=== PATIENT | female | born 1980 | race Asian ===

== ENCOUNTER 2018-01-17 05:13 | Inpatient (IN) | payer OTHER ==
[2018-01-17] VITALS (11 sets, daily range): BP systolic 102–118; BP diastolic 49–73
[~2018-01-17] VITALS: Ht 172.7 cm; Wt 93.4 kg
[~2018-01-17 05:13] MED LIST: CELEXA20 MG ORAL; NORCO 5-325 TA1 EAC1 ORAL; WELLBUTRIN XL150 MG ORAL
[2018-01-17] MEDS ORDERED: PERCOCET 5-3251 EACH ORAL (06:19)
[2018-01-17] MEDS ORDERED: XANAX0.25 MG ORAL (06:20)
[2018-01-17] MEDS ORDERED: ceFAZolin sod 2 GM in D5W 110 ML IVPB ONE (07:00)
[2018-01-17] MEDS ORDERED: Bupivacaine 0.5% Inj 30 ml vial INJ ONE (07:16)
[2018-01-17] MEDS ORDERED: Thrombin 5000 units TOPIC ONE ×2 (07:17→07:50)
[2018-01-17] MEDS ORDERED: Vancomycin 1gm inj IVPB ONE (07:17)
[2018-01-17] MEDS ORDERED: Bacitracin 50000 Units Vial ONE ×2 (07:17→12:40)
--- NOTE | 2018-01-17 07:20 | Pre-Procedure Note/Attestation ---
Pre-Procedure Note/Attestation Complete Prior to Procedure Procedure Narrative: transforaminal lumbar interforaminal fusion and decompression and instrumentation at L5S1 Indications for Procedure Pre-Operative Diagnosis: lumbar radiculopathy right sided Attestation I attest that I discussed the nature of the procedure; its benefits; risks and complications; and alternatives (and the risks and benefits of such alternatives ), prior to the procedure, with the patient (or the patient's legal packaging sales representative). I attest that, if there was a reasonable possibility of needing a blood transfusion, the patient (or the patient's legal packaging sales representative) was given the [place] [facility] [employer] [facility] standardized written summary, pursuant to the Jayesh Edson Blood Safety Act ([place] Health and Safety Code # 1645, as amended). I attest that I re-evaluated the patient just prior to the surgery and that there has been no change in the patient's H&P, except as documented below: AILYN ARAUJO Jan 17, 2018 07:20
[2018-01-17] MEDS ORDERED: Naloxone 0.4mg/ml Inj IVP PRN ×2 (07:30→12:15)
--- NOTE | 2018-01-17 07:43 | Anethesia Preoperative Eval ---
Anesthesia Pre-op PMH/ROS General Date of Evaluation: Jan 17, 2018 Time of Evaluation: 07:42 Anesthesiologist: José Miguel ASA Score: ASA 2 Mallampati Score Class I : Soft palate, uvula, fauces, pillars visible Class II: Soft palate, uvula, fauces visible Class III: Soft palate, base of uvula visible Class IV: Only hard plate visible Mallampati Classification: Class II Surgeon: Steve Diagnosis: Lumbar radiculopathy Surgical Procedure: L5-S1 discectomy with fusion Anesthesia History: PONV Family History: no anesthesia problems Allergies: Coded Allergies: LATEX (Verified Allergy, Intermediate, hives, 01/16/18) ADHESIVE TAPE (Verified Allergy, Mild, rash, 01/16/18) Medications: see eMAR Past Medical History Cardiovascular: Denies: HTN, CAD, NC, valve dz, arrhythmia, other Pulmonary: Denies: asthma, COPD, KAR, other Gastrointestinal/Genitourinary: Reports: GERD - mild; Denies: CRI, ESRD, other Neurologic/Psychiatric: Reports: depression/anxiety, other - chronic pain Endocrine: Denies: DM, hypothyroidism, steroids, other HEENT: Denies: cataract (L), cataract (R), glaucoma, COUNCIL (L), COUNCIL (R), other Hematology/Immune: Denies: anemia, DVT, bleeding disorder, other Musculoskeletal/Integumentary: Denies: OA, RA, DJD, DDD, edema, other Other: other - overweight PMH Narrative: as above PSxH Narrative: R shoulder scope. ACDF Anesthesia Pre-op Phys. Exam Physician Exam Last Vital Signs Date Time Temp Pulse Resp B/P (MAP) Pulse Ox O2 Delivery O2 Flow Rate FiO2 01/17/18 06:12 97.8 81 20 113/73 98 Room Air 97.8 Constitutional: NAD, other Neurologic: CN 2-12 intact Cardiovascular: RRR, no M/R/G Respiratory: CTA Gastrointestinal: S/NT/ND Airway Exam Mallampati Score: Class II MO: full Neck: stiff post surgical ROM: limited Teeth: intact Dentures: no upper, no lower Anesthesia Pre-op A/P Labs see chart Urine Test Test 01/17/18 05:40 Urine HCG, Qualitative Negative (NEGATIVE) Studies Pre-op Studies: EKG - NSR Risk Assessment & Plan Assessment: ASA 2 Plan: GA with ETT prone position PONV prevention neuromonitoring Status Change Before Surgery: No Pre-Antibiotics Drug: Ancef 2gr. Given Within 1 Hr of Incision: Yes Time Given: 07:58 KETURAH WERNER M.D. Jan 17, 2018 07:43
[2018-01-17] MEDS ORDERED: Bacitracin 50000 Units Vial IRRIG ONE (07:50)
[2018-01-17] MEDS ORDERED: Zemuron 50mg/5ml Inj IV ONE (08:00)
[2018-01-17] MEDS ORDERED: Succinylcholine 20mg/ml 10ml vial ONE (08:00)
[2018-01-17] MEDS ORDERED: fentaNYL 100 mcg/2 mL IV ONE (08:00)
[2018-01-17] MEDS ORDERED: Glycopyrrolate 0.2mg/ml 1ml Vial ONE (08:00)
[2018-01-17] MEDS ORDERED: Neostigmine 1mg/ml 10ml Inj ONE (08:00)
[2018-01-17] MEDS ORDERED: LR 1000ml ONE (08:00)
[2018-01-17] MEDS ORDERED: Midazolam 2mg/2ml Inj ONE (08:00)
[2018-01-17] MEDS ORDERED: Morphine Sulfate 4mg/ml Inj ONE (08:00)
[2018-01-17] MEDS ORDERED: Ketorolac 30mg Inj ONE (08:00)
[2018-01-17] MEDS ORDERED: Propofol 200mg/20ml IV ONE (08:00)
[2018-01-17] MEDS ORDERED: LR 1000ml 1,000 ML IVLG SCH (09:05)
[2018-01-17] MEDS ORDERED: Meperidine 50mg/ml Inj(FOR RIGORS ONLY) IV PRN (09:15)
[2018-01-17] MEDS ORDERED: DiphenhydrAMINE 50mg/ml Inj IVP PRN ×2 (09:15→12:00)
[2018-01-17] MEDS ORDERED: Hydromorphone 0.5mg/0.5ml inj IVP PRN (09:15)
[2018-01-17] MEDS ORDERED: Midazolam 2mg/2ml Inj IVP PRN (09:15)
[2018-01-17] MEDS ORDERED: Ketorolac 30mg Inj IV PRN (09:15)
[2018-01-17] MEDS ORDERED: Acetaminophen (Non formulary) 100 ML IV ONE (09:15)
--- NOTE | 2018-01-17 10:21 | Diagnostic Imaging Report ---
Indication: Back pain Technique: Flexion and extension lateral views of the lumbar spine Comparison: None Findings: No change in anatomic alignment with flexion and extension. Bony alignment is normal. Vertebral body heights are preserved. There is mild degenerative narrowing of the L5-S1 disc. Slight superior endplate irregularity of L4 probably reflects an intravertebral disc herniation. Impression: No acute process
[2018-01-17] MEDS ORDERED: Rate Change PCA 1 Each MISC PRN (12:15)
--- NOTE | 2018-01-17 12:54 | Brief Operative Note ---
Immediate Post Operative Note Operative Note Pre-op Diagnosis: lumbar radiculopathy right sided Procedure: tlif l5s1 Post-op Diagnosis: same as pre-op Findings: consistent w/pre-op dx studies Surgeon: VAN Rigging Loft Mechanic: RENE Anesthesiologist: ALPHONSO Anesthesia: general Specimen: yes Complications: none Condition: stable Fluids: 1800CC Estimated Blood Loss: volume - 400CC Drains: hemovac Implant(s) used?: Yes AILYN ARAUJO Jan 17, 2018 12:54
[2018-01-17] MEDS: PCA HYDROmorphone 1mg/ml 30 ML IV PRN (13:02)
--- NOTE | 2018-01-17 14:09 | Immediate Post-Op Evaluation ---
Immediate Post-Op Evalulation Immediate Post-Op Evalulation Procedure: L5-S1 laminotomy with discectomy and interbody fusion Date of Evaluation: Jan 17, 2018 Time of Evaluation: 12:31 IV Fluids: 2000 Blood Products: none Estimated Blood Loss: 400 Urinary Output: 300 Blood Pressure Systolic: 106 Blood Pressure Diastolic: 58 Pulse Rate: 86 Respiratory Rate: 22 O2 Sat by Pulse Oximetry: 99 Temperature (Fahrenheit): 98.9 Pain Score (1-10): 2 Nausea: No Vomiting: No Complications none Patient Status: reacts, patent, extubated, none Hydration Status: adequate KETURAH WERNER M.D. Jan 17, 2018 14:08
[2018-01-17] MEDS ORDERED: PCA Education Pamphlet MISC ONE (15:00)
[2018-01-17] MEDS: D5 1/2NS w/KCl 20mEq 1,000 ML IV SCH (16:34)
[2018-01-17] MEDS: ceFAZolin sod 1 GM in NS 55 ML IV SCH ×2 (16:34→23:06)
[2018-01-17] MEDS: Docusate 100mg cap ORAL SCH (17:39)
[2018-01-17] MEDS: PCA shift volume MISC SCH (19:30)
--- NOTE | 2018-01-17 22:40 | History and Physical ---
History of Present Illness General Date patient seen: Jan 17, 2018 Present Illness HPI 37 year old female with hx of anxiety, depression admitted for right sided lumbar radiculopathy. Post operatively pt is admitted to surgical floor for pain management and post operative care Allergies: Coded Allergies: LATEX (Verified Allergy, Intermediate, hives, 01/16/18) ADHESIVE TAPE (Verified Allergy, Mild, rash, 01/16/18) Medication History Scheduled Alprazolam* (Xanax*), 0.25 MG ORAL , (Reported) Bupropion Hcl* (Wellbutrin Xl*), 150 MG ORAL DAILY, (Reported) Citalopram Hydrobromide* (Celexa*), 20 MG ORAL DAILY, (Reported) Scheduled PRN Hydrocodone Bit/Acetaminophen 5-325* ([place] 5-325 Tablet*), 1 TAB ORAL Q6HR PRN for For Pain, (Reported) Oxycodone/Acetaminophen 5-325* (Percocet 5-325 Mg Tablet*), 1 TAB ORAL Q4H PRN for For Pain, (Reported) Patient History Healthcare decision maker RADHA DE LEON - Resuscitation status Full Code Advanced Directive on File Past Medical/Surgical History Past Medical/Surgical History: (1) Depression Review of Systems Gastrointestinal: Reports: nausea, vomiting All Other Systems: negative except mentioned in HPI Physical Exam General Appearance: WD/WN Lines, tubes and drains: peripheral HEENT: normocephalic, atraumatic Neck: non-tender, normal alignment Respiratory/Chest: chest wall non-tender, lungs clear Breasts: no masses Cardiovascular/Chest: normal peripheral pulses Abdomen: normal bowel sounds, non tender Genitourinary/Rectal: normal genital exam, normal rectal exam Extremities: normal range of motion Skin Exam: normal pigmentation Last 24 Hour Vital Signs Date Time Temp Pulse Resp B/P (MAP) Pulse Ox O2 Delivery O2 Flow Rate FiO2 01/17/18 20:00 97.2 78 17 110/65 97 Nasal Cannula 3.0 97.2 01/17/18 20:00 17 01/17/18 17:15 Nasal Cannula 3.0 32 01/17/18 17:15 98 Nasal Cannula 3.0 32 01/17/18 16:00 20 01/17/18 15:55 98.4 85 18 111/61 98 Nasal Cannula 3.0 98.4 01/17/18 15:16 20 01/17/18 15:00 20 01/17/18 14:30 20 01/17/18 14:16 20 01/17/18 14:15 98.8 86 18 103/54 96 Nasal Cannula 3.0 98.8 01/17/18 14:09 100.2 01/17/18 14:08 100.2 01/17/18 14:08 210.0 86 22 99 01/17/18 14:00 20 01/17/18 13:46 20 01/17/18 13:31 20 01/17/18 13:24 97 18 106/52 99 Simple Mask 6.0 01/17/18 13:15 100.2 88 18 118/49 99 Nasal Cannula 3.0 100.2 01/17/18 13:02 97.8 01/17/18 13:02 20 01/17/18 13:02 91 18 106/52 99 Nasal Cannula 3.0 01/17/18 12:47 97.8 01/17/18 12:47 97 18 106/52 99 Simple Mask 6.0 01/17/18 12:35 101 18 102/51 99 Simple Mask 6.0 01/17/18 12:30 102 18 107/49 99 Simple Mask 6.0 01/17/18 12:25 100.0 117 16 105/52 98 Simple Mask 6.0 100.0 01/17/18 06:12 97.8 81 20 113/73 98 Room Air 97.8 Laboratory Tests Test 01/17/18 05:40 Urine HCG, Qualitative Negative (NEGATIVE) Height (Feet): 5 Height (Inches): 8.00 Weight (Pounds): 206 Medications Current Medications Medications (Trade) Dose Ordered Sig/Yareli Route PRN Reason Start Time Stop Time Status Last Admin Dose Admin Acetaminophen/ Hydrocodone Bitart ([place] 5/325) 1 tab Q3H PRN ORAL pain score 1-3 01/19/18 12:00 01/26/18 11:59 Acetaminophen/ Hydrocodone Bitart ([place] 7.5/325) 1 tab Q3H PRN ORAL pain score 4-6 01/19/18 12:00 01/26/18 11:59 Acetaminophen/ Hydrocodone Bitart ([place] 7.5/325) 2 tab Q3H PRN ORAL pain scale 7-10 01/19/18 12:00 01/26/18 11:59 Cefazolin Sodium 1 gm/Sodium Chloride 55 ml @ 110 mls/hr Q8H IV 01/17/18 15:00 01/18/18 07:29 01/17/18 16:34 Dextrose/ Electrolytes 1,000 ml @ 100 mls/hr Q10H IV 01/17/18 16:30 02/16/18 16:29 01/17/18 16:34 Diphenhydramine HCl (Benadryl) 25 mg Q6H PRN IVP Itching/Pruritis 01/17/18 12:00 01/19/18 11:59 Docusate Sodium (Colace) 100 mg TWICE A DAY ORAL 01/17/18 18:00 02/16/18 17:59 Hydromorphone HCl 30 ml @ 0 mls/hr Q24H PRN IV For Pain 01/17/18 12:00 01/19/18 11:59 01/17/18 13:02 Hydromorphone HCl (Dilaudid) 1 mg Q2H PRN IVP Moderate Pain (Pain Scale 4-6) 01/17/18 12:15 01/19/18 12:14 Hydromorphone HCl (Dilaudid) 1 mg Q2H PRN IVP Breakthrough Pain 01/19/18 12:00 01/26/18 11:59 Hydromorphone HCl (Dilaudid) 1 mg Q4H PRN SUBQ Mild Pain (Pain Scale 1-3) 01/19/18 12:00 01/26/18 11:59 Hydromorphone HCl (Dilaudid) 2 mg Q3H PRN SUBQ Severe Pain (Pain Scale 7-10) 01/19/18 12:00 01/26/18 11:59 Hydromorphone HCl (Dilaudid) 2 mg Q4H PRN SUBQ Moderate Pain (Pain Scale 4-6) 01/19/18 12:00 01/26/18 11:59 Miscellaneous Medication (PRODUCT APPLICATIONS SCIENTIST Rate Change) 1 ea DAILY PRN MISC rate change 01/17/18 12:15 01/19/18 12:14 Miscellaneous Medication (PRODUCT APPLICATIONS SCIENTIST shift volume) 1 ea Q12HR@0700,1900 MISC 01/17/18 19:00 01/19/18 18:59 3/22/18 19:30 Naloxone HCl (Narcan) 0.1 mg Q1M PRN IVP RR<10/min OR SBP<90 mmHg 01/17/18 12:15 01/19/18 12:14 Ondansetron HCl (Zofran) 4 mg Q4HR PRN IVP Nausea & Vomiting 01/17/18 22:30 01/19/18 11:59 UNV Promethazine HCl (Phenergan) 25 mg Q4HR PRN IV nausea 01/17/18 22:30 02/16/18 22:29 UNV Temazepam (Restoril) 7.5 mg HSPRN PRN ORAL Insomnia 01/17/18 21:00 01/19/18 20:59 Assessment/Plan Assessment/Plan symptomatic treatment PCR advance diet as tolerated anxiolytics antiemetics dvt prophylaxis. Frannie Up MD Jan 17, 2018 22:40
[2018-01-18] VITALS: BP 112/60
[2018-01-18] MEDS: D5 1/2NS w/KCl 20mEq 1,000 ML IV SCH ×3 (02:42→22:55)
[2018-01-18 04:00] VITALS: BP 104/60
[2018-01-18] MEDS: ceFAZolin sod 1 GM in NS 55 ML IV SCH (06:13)
[2018-01-18 07:36] LABS: BASOPHILS % (AUTO) 0.5 % (0.0-2.0); EOSINOPHILS % (AUTO) 1.2 % (0.0-3.0); HEMATOCRIT 32.5 % (37.0-47.0); HEMOGLOBIN 10.9 G/DL (12.0-16.0); LYMPHOCYTES % (AUTO) 14.4 % (20.0-45.0); MEAN CORPUSCULAR VOLUME 89 FL (80-99); MONOCYTES % (AUTO) 7.4 % (1.0-10.0); NEUTROPHILS % (AUTO) 76.5 % (45.0-75.0); PLATELET COUNT 247 K/UL (150-450); RED BLOOD COUNT 3.68 M/UL (4.20-5.40); RED CELL DISTRIBUTION WIDTH 11.5 % (11.6-14.8); WHITE BLOOD COUNT 13.2 K/UL (4.8-10.8)
[2018-01-18] MEDS: PCA shift volume MISC SCH ×2 (07:54→19:00)
[2018-01-18 07:57] LABS: ANION GAP 6 mmol/L (5-15); BLOOD UREA NITROGEN 4 mg/dL (7-18); CALCIUM 7.6 MG/DL (8.5-10.1); CARBON DIOXIDE 29 MMOL/L (21-32); CHLORIDE 105 MMOL/L (98-107); CREATININE 0.5 MG/DL (0.55-1.30); POTASSIUM 3.7 MMOL/L (3.5-5.1); SODIUM 139 MMOL/L (136-145)
[2018-01-18 08:00] VITALS: BP 100/50
--- NOTE | 2018-01-18 08:19 | Diagnostic Imaging Report ---
Indication: Back pain, intraoperative Technique: Intraoperative images Comparison: none Findings: Intraoperative images demonstrate posterior fusion and placement of a disc spacer at L5-S1 Impression: Intraoperative imaging, as described
[2018-01-18] MEDS: Docusate 100mg cap ORAL SCH ×2 (09:58→16:51)
[2018-01-18 12:00] VITALS: BP 105/55
--- NOTE | 2018-01-18 12:20 | Pulmonology Progress Note ---
Assessment/Plan Problems: (1) L5-S1 laminotomy with discectomy and interbody fusion (2) Depression Assessment/Plan symptomatic treatment iv fluids advance diet as tolerated dvt prophylaxis. Subjective ROS Limited/Unobtainable: No Interval Events: still nauseous, on clear liquid Allergies: Coded Allergies: LATEX (Verified Allergy, Intermediate, hives, 01/16/18) ADHESIVE TAPE (Verified Allergy, Mild, rash, 01/16/18) Objective Last 24 Hour Vital Signs Date Time Temp Pulse Resp B/P (MAP) Pulse Ox O2 Delivery O2 Flow Rate FiO2 01/18/18 10:25 98.6 01/18/18 09:55 98.6 01/18/18 08:00 98.6 81 19 100/50 97 98.6 01/18/18 08:00 19 01/18/18 04:00 98.3 95 17 104/60 98 Nasal Cannula 3.0 98.3 01/18/18 04:00 18 01/18/18 00:00 17 01/18/18 00:00 97.8 90 17 112/60 97 Nasal Cannula 3.0 97.8 01/17/18 20:00 97.2 78 17 110/65 97 Nasal Cannula 3.0 97.2 01/17/18 20:00 17 01/17/18 17:15 Nasal Cannula 3.0 32 01/17/18 17:15 98 Nasal Cannula 3.0 32 01/17/18 16:00 20 01/17/18 15:55 98.4 85 18 111/61 98 Nasal Cannula 3.0 98.4 01/17/18 15:16 20 01/17/18 15:00 20 01/17/18 14:30 20 01/17/18 14:16 20 01/17/18 14:15 98.8 86 18 103/54 96 Nasal Cannula 3.0 98.8 01/17/18 14:09 100.2 01/17/18 14:08 100.2 01/17/18 14:08 210.0 86 22 99 01/17/18 14:00 20 01/17/18 13:46 20 01/17/18 13:31 20 01/17/18 13:24 97 18 106/52 99 Simple Mask 6.0 01/17/18 13:15 100.2 88 18 118/49 99 Nasal Cannula 3.0 100.2 01/17/18 13:02 97.8 01/17/18 13:02 20 01/17/18 13:02 91 18 106/52 99 Nasal Cannula 3.0 01/17/18 12:47 97.8 01/17/18 12:47 97 18 106/52 99 Simple Mask 6.0 01/17/18 12:35 101 18 102/51 99 Simple Mask 6.0 01/17/18 12:30 102 18 107/49 99 Simple Mask 6.0 01/17/18 12:25 100.0 117 16 105/52 98 Simple Mask 6.0 100.0 Intake and Output 01/17/18 01/18/18 19:00 07:00 Intake Total 2955 ml 1460 ml Output Total 910 ml 1160 ml Balance 2045 ml 300 ml Intake Oral 200 ml 360 ml IV Total 2755 ml 1100 ml Output Urine Total 450 ml 1125 ml Drainage Total 60 ml 35 ml Estimated Blood Loss 400 ml General Appearance: WD/WN HEENT: normocephalic, atraumatic Respiratory/Chest: chest wall non-tender, normal breath sounds Cardiovascular: normal peripheral pulses, normal rate Abdomen: normal bowel sounds, soft, non tender Genitourinary: normal external genitalia Extremities: no clubbing Skin: no lesions Laboratory Tests 01/18/18 05:40: White Blood Count 13.2H, Red Blood Count 3.68L, Hemoglobin 10.9L, Hematocrit 32.5L, Mean Corpuscular Volume 89, Mean Corpuscular Hemoglobin 29.5, Mean Corpuscular Hemoglobin Concent 33.4, Red Cell Distribution Width 11.5L, Platelet Count 247, Mean Platelet Volume 9.2, Neutrophils (%) (Auto) 76.5H, Lymphocytes (%) (Auto) 14.4L, Monocytes (%) (Auto) 7.4, Eosinophils (%) (Auto) 1.2, Basophils (%) (Auto) 0.5, Sodium Level 139, Potassium Level 3.7, Chloride Level 105, Carbon Dioxide Level 29, Anion Gap 6, Blood Urea Nitrogen 4L, Creatinine 0.5L, Estimat Glomerular Filtration Rate > 60, Glucose Level 102, Calcium Level 7.6L Current Medications Medications (Trade) Dose Ordered Sig/Yareli Route PRN Reason Start Time Stop Time Status Last Admin Dose Admin Acetaminophen/ Hydrocodone Bitart ([place] 5/325) 1 tab Q3H PRN ORAL pain score 1-3 01/19/18 12:00 01/26/18 11:59 Acetaminophen/ Hydrocodone Bitart ([place] 7.5/325) 1 tab Q3H PRN ORAL pain score 4-6 01/19/18 12:00 01/26/18 11:59 Acetaminophen/ Hydrocodone Bitart ([place] 7.5/325) 2 tab Q3H PRN ORAL pain scale 7-10 01/19/18 12:00 01/26/18 11:59 Dextrose/ Electrolytes 1,000 ml @ 100 mls/hr Q10H IV 01/17/18 16:30 02/16/18 16:29 01/18/18 12:06 Diphenhydramine HCl (Benadryl) 25 mg Q6H PRN IVP Itching/Pruritis 01/17/18 12:00 01/19/18 11:59 Docusate Sodium (Colace) 100 mg TWICE A DAY ORAL 01/17/18 18:00 02/16/18 17:59 Hydromorphone HCl 30 ml @ 0 mls/hr Q24H PRN IV For Pain 01/17/18 12:00 01/19/18 11:59 01/17/18 13:02 Hydromorphone HCl (Dilaudid) 1 mg Q2H PRN IVP Moderate Pain (Pain Scale 4-6) 01/17/18 12:15 01/19/18 12:14 01/18/18 09:55 Hydromorphone HCl (Dilaudid) 1 mg Q2H PRN IVP Breakthrough Pain 01/19/18 12:00 01/26/18 11:59 Hydromorphone HCl (Dilaudid) 1 mg Q4H PRN SUBQ Mild Pain (Pain Scale 1-3) 01/19/18 12:00 01/26/18 11:59 Hydromorphone HCl (Dilaudid) 2 mg Q3H PRN SUBQ Severe Pain (Pain Scale 7-10) 01/19/18 12:00 01/26/18 11:59 Hydromorphone HCl (Dilaudid) 2 mg Q4H PRN SUBQ Moderate Pain (Pain Scale 4-6) 01/19/18 12:00 01/26/18 11:59 Miscellaneous Medication (STRAIGHTENING MACHINE FEEDER Rate Change) 1 ea DAILY PRN MISC rate change 01/17/18 12:15 01/19/18 12:14 Miscellaneous Medication (STRAIGHTENING MACHINE FEEDER shift volume) 1 ea Q12HR@0700,1900 MISC 01/17/18 19:00 01/19/18 18:59 01/18/18 07:54 Naloxone HCl (Narcan) 0.1 mg Q1M PRN IVP RR<10/min OR SBP<90 mmHg 01/17/18 12:15 01/19/18 12:14 Ondansetron HCl (Zofran) 4 mg Q4H PRN IVP Nausea & Vomiting 01/17/18 22:30 02/16/18 22:29 01/18/18 09:49 Promethazine HCl (Phenergan) 25 mg Q4H PRN IV nausea 01/17/18 22:30 02/16/18 22:29 01/17/18 23:06 Temazepam (Restoril) 7.5 mg HSPRN PRN ORAL Insomnia 01/17/18 21:00 01/19/18 20:59 Frannie Up MD Jan 18, 2018 12:20
[2018-01-18 15:53] VITALS: BP 107/65
--- NOTE | 2018-01-18 16:03 | General Progress Note ---
Progress Note Progress Note doing well post op no leg pain pain in lb different than preop sensation normal a and o times 3 dressing cdi hv 30 cc 5/5 motor in the lower extremity sensation wnl calves soft/nt vitals stable a: doing well stable P: oob pt labs pain management dc tomorrow AILYN ARAUJO Jan 18, 2018 16:03
--- NOTE | 2018-01-18 16:30 | 48 Hour Post Anesthesia Eval ---
Post Anesthesia Evaluation Procedure: L5-S1 laminotomy with discectomy and interbody fusion Date of Evaluation: Jan 18, 2018 Time of Evaluation: 16:29 Blood Pressure Systolic: 106 0: 72 Pulse Rate: 74 Respiratory Rate: 20 Temperature (Fahrenheit): 97.6 O2 Sat by Pulse Oximetry: 99 Airway: patent Nausea: No Vomiting: No Pain Intensity: 2 Hydration Status: adequate Cardiopulmonary Status: stable Mental Status/LOC: patient returned to baseline Follow-up Care/Observations: n/a Post-Anesthesia Complications: none Follow-up care needed: N/A KETURAH WERNER M.D. Jan 18, 2018 16:30
[2018-01-18 20:00] VITALS: BP_SYST 110; BP_SYST 98; BP_DIAS 57; BP_DIAS 61
[2018-01-18] MEDS: PCA HYDROmorphone 1mg/ml 30 ML IV PRN (20:26)
[2018-01-19] VITALS (7 sets, daily range): BP systolic 92–113; BP diastolic 54–68
[2018-01-19] MEDS: PCA shift volume MISC SCH (07:28)
[2018-01-19 07:54] LABS: BASOPHILS % (AUTO) 0.6 % (0.0-2.0); EOSINOPHILS % (AUTO) 0.4 % (0.0-3.0); HEMOGLOBIN 10.8 G/DL (12.0-16.0); MEAN CORPUSCULAR VOLUME 89 FL (80-99); MONOCYTES % (AUTO) 7.7 % (1.0-10.0); NEUTROPHILS % (AUTO) 81.3 % (45.0-75.0); PLATELET COUNT 243 K/UL (150-450); RED CELL DISTRIBUTION WIDTH 11.5 % (11.6-14.8); WHITE BLOOD COUNT 14.9 K/UL (4.8-10.8)
[2018-01-19 08:09] LABS: ANION GAP 3 mmol/L (5-15); BLOOD UREA NITROGEN 2 mg/dL (7-18); CALCIUM 7.6 MG/DL (8.5-10.1); CARBON DIOXIDE 30 MMOL/L (21-32); CHLORIDE 104 MMOL/L (98-107); CREATININE 0.6 MG/DL (0.55-1.30); POTASSIUM 4.2 MMOL/L (3.5-5.1); SODIUM 137 MMOL/L (136-145)
[2018-01-19] MEDS: D5 1/2NS w/KCl 20mEq 1,000 ML IV SCH ×2 (08:51→18:19)
[2018-01-19] MEDS: Docusate 100mg cap ORAL SCH ×2 (08:52→18:19)
[2018-01-19] MEDS ORDERED: HYDROcodone/Acetamin 7.5/325 tab ORAL PRN ×4 (12:00→20:00)
[2018-01-19] MEDS ORDERED: HYDROmorphone 1mg/ml Carpuject IVP PRN ×2 (12:00→20:00)
[2018-01-19] MEDS ORDERED: Norco 5mg/325mg tab ORAL PRN ×2 (12:00→20:00)
[2018-01-19] MEDS ORDERED: HYDROmorphone 1mg/ml Carpuject SUBQ PRN ×2 (12:00→13:30)
[2018-01-19] MEDS ORDERED: DiphenhydrAMINE 50mg/ml Inj IVP PRN (12:15)
[2018-01-19] MEDS ORDERED: Rate Change PCA 1 Each MISC PRN (12:15)
[2018-01-19] MEDS ORDERED: PCA HYDROmorphone 1mg/ml 30 ML IV PRN (12:15)
[2018-01-19] MEDS ORDERED: Naloxone 0.4mg/ml Inj IVP PRN (12:15)
--- NOTE | 2018-01-19 14:54 | General Progress Note ---
Progress Note Progress Note doing well except for n/v no leg pain lbp mild avss a and o times 3 inc cdi hv removed / le calves soft and nt A: doing well dc today vs tomorrow cano to be dc'd pain meds fu in 7 days AILYN ARAUJO Jan 19, 2018 14:54
[2018-01-19] MEDS ORDERED: PCA shift volume MISC SCH (19:00)
--- NOTE | 2018-01-20 02:15 | Operative Note - Dictated ---
DATE OF OPERATION: 01/17/2018 PREOPERATIVE DIAGNOSES: L5-S1 disk height collapse, disk protrusion, annular fissure, stenosis, and right lower extremity radiculopathy. POSTOPERATIVE DIAGNOSES: L5-S1 disk height collapse, disk protrusion, annular fissure, stenosis, and right lower extremity radiculopathy. PROCEDURE PERFORMED: 1. Pedicle screw instrumentation at L5-S1. 2. Posterior interbody fusion at L5-S1. 3. Implantation of PEEK interbody device at L5-S1. 4. Implantation of allograft and autograft at L5-S1. 5. Posterior osteotomy at L5-S1. 6. Posterolateral fusion at L5-S1. 7. Intraoperative use of fluoroscopy. 8. Intraoperative use of microscope. 9. SSEP and EMG neural monitoring. SURGEON: Chao Wilson M.D. RADIAL DRILL OPERATOR: Jose Manuel Rojo M.D. ANESTHESIA: General endotracheal anesthesia. ANESTHESIOLOGIST: Dr. Valdez. INTRAOPERATIVE FINDINGS: Disk height collapse at L5-S1 with disk protrusion, lateral recess stenosis, and foraminal stenosis. ESTIMATED BLOOD LOSS: 400 mL. FLUIDS: 1600 mL of crystalloid. INDICATIONS: This is a pleasant female, who has failed nonoperative treatment and options for above treatment were given. Risks, alternatives, and benefits were discussed with the patient at length. Risks include but are not limited to anesthesia complications including , medical complications including liver, kidney, and cardiopulmonary deficits, bleeding, infection, dural tear, CSF leak, nerve injury, instability, reherniation, continued symptoms, adjacent level disk herniations, screw cutoff, screw failure as well as other complications. The patient also had preoperative flexion and extension x-rays of the lumbar spine, which did not show instability. DESCRIPTION OF OPERATION: The patient was brought into the operating room supine on a stretcher. Subsequently, appropriate IV lines were placed and 2 g of Ancef was administered. Anesthesia was induced and the patient was successfully intubated. Sequential compression devices were placed. The patient was turned over on the [place] frame. All bony prominences were well padded. The abdomen was assured to lie freely. The L5-S1 interspace was positively identified via preoperative fluoroscopy and an indelible marker was used to iqra the midline. The patient was prepped and draped in the usual sterile fashion with alcohol, chlorhexidine scrub, ChloraPrep, and Ioban draping. Myself and my visitor information assistant were prepped and gowned. At this point, a midline incision was carried out over the L5-S1. Monopolar cautery was used for dissection through the dorsal lumbar fascia and subperiosteal dissection at L5-S1 including the facet junction at L5-S1, the transverse process at L5, and the sacral ala at S1. The L4-L5 facet joint capsule was well preserved. At this point, a radiopaque marker was placed and the L5-S1 interspace was positively identified. Retractors were set into place. With the use of curved and straight curettes #1 through #5, Kerrison punches as well as high speed drill, an interlaminar laminotomy was done at L5-S1 on the right side. The ligamentum flavum was removed. The S1 pedicle was skeletonized with Kerrison rongeurs as well as curettes. At this point, a [place] probe was used to probe the foramina on the right side at L5-S1 and there was significant foraminal stenosis for the exiting L5 nerve root. At this point, with the use of high-speed drill as well as osteotomes, an osteotomy of the superior and inferior articular facets at L5-S1 was done for complete decompression of the exiting L5 nerve root on the right side as well as access to the transforaminal space for the interbody fusion. There was minimal bleeding and hemostasis was achieved with Gelfoam, thrombin, FloSeal as well as bipolar cautery. The exiting L5 nerve root was slightly inflamed. Now, attention was diverted to the amniotomy. A nerve root retractor was used to carefully retract the neural elements medially and with an #11 scalpel, a box incision was made in the posterior anulus with the use of russ, Viola curettes, pituitary rongeurs as well as box curette. A radical diskectomy at L5-S1 was done and the endplate cartilage was removed. The endplate bone was well preserved. A sufficient amount of disk was removed. At this point, trials from the [employer] System was used, an 8 x 22 x 9 mm trial was found to fit the interbody space well and recreate disk height. Now, a PEEK interbody device was chosen with those dimensions and packed with Keith putty, local autograft from the osteotomy as well as bone morphogenic protein. Allograft, autograft, and bone morphogenic protein was placed anteriorly into the disk space first and subsequently the PEEK interbody device was tamped into place at L5-S1 with excellent apposition against the endplates and good re-creation of disk height. The interbody device was checked and was found to be very stable. At this point, copious Triple Antibiotic irrigation was used. Irrigation was also used in the disk space before implantation of the hardware. Now, attention was diverted to completing the decompression. Undercutting of the lamina was done for a central decompression as well as complete decompression of the lateral recess. The S1 nerve on the right side was found to be well decompressed. The ligamentum flavum was completely removed. Now, with a high-speed drill as well as the pedicle finder, the center of the pedicles at bilateral S1 and bilateral L5 was found and was probed with a pedicle finder. Ball-tip probes were subsequently used at each pedicle and there were no cortical breaches. Appropriate-sized caps were used and the following pedicle screws from the [employer] System were used, L5 bilaterally 6.0 x 40 mm screws, S1 on the left 7.0 x 40 mm screw, and S1 on the right 7.0 x 35 mm screw. Each screw had excellent purchase and the screws were placed under biplanar fluoroscopy. Of note, the intraoperatively sterilely draped microscope was used from the very beginning of the skin cut to skin closure. Once the screws were placed, stimulus-evoked EMG was used and 20 milliamps of current. There was no conduction in the respective nerve roots. Now, the SSEP and EMGs were checked throughout the case and there was no EMG activity throughout the case and the SSEP signals remained stable. Attention now was placed to doing posterolateral fusion. The transverse processes as well as the sacral ala and the facet joint on the left side were decorticated sufficiently and a posterolateral fusion entailed with placement of local autograft and allograft for posterolateral fusion. Once this was accomplished, attention was placed to placing the estela and the set screws. The 40 mm rods were placed bilaterally, set screws were placed and were torqued. There was no cross-threading and AP and lateral fluoroscopy revealed all the instrumentation to be in adequate position. Please note that multiple Triple Antibiotic solution irrigation was used throughout the case before placement of bone graft. Now, attention was diverted to hemostasis which was achieved with Gelfoam, thrombin, FloSeal, and bipolar cautery and attention was diverted to closure. A subfascial Hemovac drain was placed. The dorsal lumbar fascia was closed with #1 Vicryl sutures in watertight fashion. The subdermal and subcuticular layers were closed with 2-0 Vicryl sutures in watertight fashion. The skin was closed with Dermabond. Sterile dressing and tape was placed. The patient was turned supine, was extubated in stable condition, was found to be neurovascularly intact, was taken to the recovery room in stable condition, and was admitted to the hospital for monitoring. Chao Wilson M.D. DR: Ashley JOB#: [id number] CC:
[2018-01-20] MEDS: D5 1/2NS w/KCl 20mEq 1,000 ML IV SCH ×2 (02:43→14:33)
[2018-01-20 04:00] VITALS: BP 108/71
[2018-01-20 05:02] VITALS: BP 108/71
[2018-01-20 08:00] VITALS: BP 111/67
[2018-01-20] MEDS: Docusate 100mg cap ORAL SCH (08:25)
[2018-01-20 09:43] VITALS: BP 111/67
[2018-01-20 12:00] VITALS: BP 114/69
[2018-01-20 16:00] VITALS: BP 104/56
--- NOTE | 2018-01-23 12:41 | Discharge Summary ---
Discharge Summary Hospital Course Date of Admission Jan 17, 2018 at 05:13 Date of Discharge Jan 20, 2018 at 17:00 Admitting Diagnosis right sided lumbar radiculopathy Reason for Hospitalization: elective surgery HPI Tammie Netltes is a 37 year old female who was admitted on Jan 17, 2018 at 05: 13 for right sided lumbar radiculopathy and elective surgery Consultations dr Jeovanny BENNETT, dr Galvan-pain specialsit Procedures s/p 01/[address] Wilson 1. Pedicle screw instrumentation at L5-S1. 2. Posterior interbody fusion at L5-S1. 3. Implantation of PEEK interbody device at L5-S1. 4. Implantation of allograft and autograft at L5-S1. 5. Posterior osteotomy at L5-S1. 6. Posterolateral fusion at L5-S1. 7. Intraoperative use of fluoroscopy. 8. Intraoperative use of microscope. 9. SSEP and EMG neural monitoring. Hospital Course s/p surgery course of recovery unremarkable initially with IV fluids pain management, controlled neurovascular intact dressing C/D/I ambulated initially n/v/, a/emetic prn, next day tolerated diet voided w/out difficulties cleared for dc scripts for analgesics provided dc instructions provided outpt fup as advised by surgeon FINAL DIAGNOSIS lumbar radiculopathy right sided s/p L5-S1 laminotomy with discectomy and interbody fusion Discharge Medications Continued Medications: Alprazolam* (Xanax*) 0.25 Mg Tablet 0.25 MG ORAL , #30 TAB 0 Refills (This prescription has been renewed) Bupropion Hcl* (Wellbutrin Xl*) 150 Mg Tab.er.24h 150 MG ORAL DAILY for 30 Days, TAB 0 Refills (This prescription has been renewed ) Citalopram Hydrobromide* (Celexa*) 20 Mg Tablet 20 MG ORAL DAILY, TAB (This prescription has been renewed) Hydrocodone Bit/Acetaminophen 5-325* ([place] 5-325 Tablet*) 1 Each Tablet 1 TAB ORAL Q6HR PRN for For Pain, TAB (This prescription has been renewed) Oxycodone/Acetaminophen 5-325* (Percocet 5-325 Mg Tablet*) 1 Each Tablet 1 TAB ORAL Q4H PRN for For Pain, TAB (This prescription has been renewed) Discharge Condition Upon Discharge: stable Discharge Disposition Patient was discharged to Home () Discharge Instructions Discharge Instructions Special Instructions I have been assigned to complete a D/C Summary on this account. I was not involved in the patient management Balbina Youssef NP ([place]) Jan 23, 2018 12:41
== END 2018-01-20 17:00 | disposition home or self-care (01) | DRG 455 ==
LOC: SDSOVERFLO 05:13 → 3E 14:10
PROC: 0SG3071 Fusion of Lumbosacral Joint with Autologous Tissue Substitute, Posterior Approach, Posterior Column, Open Approach (ICD-10-PCS; principal; 2018-01-17 07:30)
PROC: 4A11X4G Monitoring of Peripheral Nervous Electrical Activity, Intraoperative, External Approach (ICD-10-PCS; principal; 2018-01-17 07:30)
PROC: 0ST40ZZ Resection of Lumbosacral Disc, Open Approach (ICD-10-PCS; principal; 2018-01-17 07:30)
PROC: 0SG30AJ Fusion of Lumbosacral Joint with Interbody Fusion Device, Posterior Approach, Anterior Column, Open Approach (ICD-10-PCS; principal; 2018-01-17 07:30)
DX: M51.17 Intervertebral disc disorders with radiculopathy, lumbosacral region (principal); F32.9 Major depressive disorder, single episode, unspecified; M48.07 Spinal stenosis, lumbosacral region; F41.9 Anxiety disorder, unspecified; R11.2 Nausea with vomiting, unspecified
CPT/HCPCS: 36415; 72020; 76001; 80048; 81025; 85025; 86850; 86900; 86901; 87081; 94003; 94150; 94760; J2250; J2405; J2710